=== PATIENT | male | born 1960 | race Caucasian/White ===

== ENCOUNTER 2024-12-30 22:23 | Emergency (ER) | payer BC ==
[~2024-12-30] VITALS: Ht 175.3 cm; Wt 136.1 kg
[2024-12-30] MEDS ORDERED: LIDOCAINE 2% (GLYDO= UROJET) 10 ML JELLY MM ONE (22:43)
[2024-12-30 22:45] LABS: PLATELET COUNT (AUTO) 304 K/uL (152-348); RED BLOOD CELL COUNT(AUTO) 4.31 MIL/uL (4.06-5.63); RED CELL DISTRIBUTION WIDTH 14.4 % (12.1-16.2); WHITE BLOOD COUNT (AUTO) 11.3 K/uL (3.6-10.2)
[2024-12-30 22:55] LABS: CREATININE 1.1 mg/dL (0.6-1.3); SODIUM SERUM 143 mmol/L (136-145); UREA NITROGEN, BLOOD 19 mg/dL (7-18)
[2024-12-30 22:56] LABS: ETHANOL < 3 MG/DL (0-10)
[2024-12-30 23:01] LABS: ASPARTATE AMINOTRANSFERASE 10 U/L (15-37); TOTAL PROTEIN, SERUM 8.4 g/dL (6.4-8.2)
[2024-12-30 23:05] LABS: *BILIRUBIN,URIN NEGATIVE (NEGATIVE); *BLOOD, URINE 2+ (NEGATIVE); *CLARITY,URINE CLEAR (CLEAR); *COLOR,URINE YELLOW (YELLOW); *KETONES,URINE TRACE (NEGATIVE); *PROTEIN,URINE 2+ (NEGATIVE); *UROBILINOGEN,URINE 1.0 E.U./dl (NORMAL); LEUKOCYTE ESTERASE ,URINE NEGATIVE (NEGATIVE); NITRITE, URINE NEGATIVE (NEGATIVE); UGLUCOSE NEGATIVE (NEGATIVE)
[2024-12-30 23:12] LABS: NEUTROPHILS % (MANUAL) 78 % (42-75)
[2024-12-30 23:13] LABS: BAND % (MANUAL) 1 % (0-10); EOSINOPHILS % (MANUAL) 3 % (0-8); LYMPHOCYTES % (MANUAL) 8 % (20-40); MONOCYTES % (MANUAL) 10 % (2-10); PLATELET ESTIMATE ADEQUATE
[2024-12-30] MEDS: LIDOCAINE 2% (GLYDO= UROJET) 10 ML JELLY MM ONE (23:13)
[2024-12-30 23:16] LABS: *AMPHETAMINE, URINE POSITIVE (NEGATIVE); *BARBITURATE, URINE NEGATIVE (NEGATIVE); *BENZODIAZEPINE, URINE NEGATIVE (NEGATIVE); *CANNABINOID, URINE NEGATIVE (NEGATIVE); *COCCAINE, URINE POSITIVE (NEGATIVE); *OPIATE, URINE NEGATIVE (NEGATIVE); *PHENCYCLIDINE SCREEN,URINE NEGATIVE (NEGATIVE); FENTANYL, URINE POSITIVE (NEGATIVE)
[2024-12-30 23:17] LABS: SQUAMOUS EPITHELIAL CELL,UR FEW /HPF (NONE SEEN)
[2024-12-30] MEDS ORDERED: VANCOMYCIN IV 1,000 MG in IV DEXTROSE 5% 250 ML IV ONE (23:30)
[2024-12-30] MEDS ORDERED: VANCOMYCIN IV 200 ML ONE (23:46)
[2024-12-30] MEDS ORDERED: HALOPERIDOL LACTATE 5 MG/1 ML VIAL ONE (23:46)
[2024-12-30] MEDS: HALOPERIDOL LACTATE 5 MG/1 ML VIAL IV ONE (23:56)
[2024-12-30] MEDS: VANCOMYCIN IV 1,000 MG in IV DEXTROSE 5% 250 ML IV ONE (23:57)
[2024-12-31] MEDS ORDERED: LORAZEPAM 2 MG/1 ML VIAL ONE (01:05)
[2024-12-31] MEDS: LORAZEPAM 2 MG/1 ML VIAL IV ONE (01:09)
[2024-12-31] MEDS: ETOMIDATE 20 MG/10 ML VIAL IV ONE (02:56)
[2024-12-31] MEDS: VECURONIUM BROMIDE 10 MG VIAL IV ONE (02:56)
[2024-12-31] MEDS: SUCCINYLCHOLINE CHLORIDE 200 MG/10 ML VIAL IV ONE (02:56)
[2024-12-31] MEDS ORDERED: PROPOFOL 100 ML ONE ×3 (03:28→08:02)
[2024-12-31] MEDS: PROPOFOL 100 ML IV ONE (04:03)
[2024-12-31 07:30] VITALS: BP 115/70; O2SAT 97
== END 2024-12-31 08:21 ==
LOC: ER 22:23
DX: R41.0 Disorientation, unspecified (principal); F19.10 Other psychoactive substance abuse, uncomplicated; L03.116 Cellulitis of left lower limb; I60.9 Nontraumatic subarachnoid hemorrhage, unspecified; I48.91 Unspecified atrial fibrillation; Z46.82 Encounter for fitting and adjustment of non-vascular catheter; Z65.3 Problems related to other legal circumstances; Z78.1 Physical restraint status; Z96.612 Presence of left artificial shoulder joint; Z79.899 Other long term (current) drug therapy; Z20.822 Contact with and (suspected) exposure to COVID-19
CPT/HCPCS: 80076; 80048; 81001; 84443; 85007; 85027; 87426; 84484; 36415 ×2; 71045; 70450; 93970; 31500; 99291; 96365; 96366; 96375 ×2; 99292; 80299; 80320; 80307; 85730; 72125; 93005; J1630; J3373; J2060; J0330; J3490; 70030-TC; A4606; A4663; C1758; G0480